=== PATIENT | female | born 1950 | race Caucasian/White ===

== ENCOUNTER → 2023-07-14 | Outpatient (CLI) | payer BC | LOC: COL.LAB 15:02 | DX: M54.50 Low back pain, unspecified (principal); M79.10 Myalgia, unspecified site; Z98.890 Other specified postprocedural states ==

== ENCOUNTER → 2023-08-17 | Outpatient (CLI) | payer BC | LOC: MHCPAIN 11:15 | DX: M54.50 Low back pain, unspecified (principal); M79.18 Myalgia, other site | CPT/HCPCS: G0463 ==

== ENCOUNTER → 2023-09-06 | Outpatient (CLI) | payer BC | LOC: MHCPAIN 13:50 | DX: M54.50 Low back pain, unspecified (principal); M79.18 Myalgia, other site; Z98.890 Other specified postprocedural states | CPT/HCPCS: G0463 ==

== ENCOUNTER → 2023-10-19 | Outpatient (CLI) | payer BC | LOC: MHCPAIN 14:54 | DX: M54.50 Low back pain, unspecified (principal); M79.18 Myalgia, other site | CPT/HCPCS: G0463 ==